=== PATIENT | female | born 1985 | race Caucasian/White ===

== ENCOUNTER 2019-09-23 11:14 | Emergency (ER) | payer OTHER ==
--- NOTE | 2019-09-23 11:37 | PDOC ---
History of Present Illness - General Chief Complaint: Pain, Acute Stated Complaint: ABD PAIN Time Seen by Provider: 09/23/19 11:17 - History of Present Illness Initial Comments: 09/23/19 12:29 34yo female with no pmhx presents with acute onset of upper abd pain today. Pt states she was eating a croissant while driving to work when the pain started after the croissant. States she did drink coffee as well. Pt states acute sharp stabbing pain to her upper abd assoc with multiple episodes of [employer]bnb vomiting at work. Pt states the pain did subside in the ambulance on the way to the hospital, but when in the exam room the pain acutely started again. Pt states she does not have diarrhea, denies dysuria. States pain radiates to her back. Pt denies prior hx of similar. No burning in chest or sour taste in mouth. No new foods last night, no new meds. Pmhx: denies Pshx: c section All: sulfa Past History - Past Medical History Allergies/Adverse Reactions: Allergies Allergy/AdvReac Type Severity Reaction Status Date / Time Sulfa (Sulfonamide Allergy Verified 09/23/19 11:16 Antibiotics) Home Medications: Ambulatory Orders Famotidine [Pepcid -] 20 mg PO DAILY #14 tablet 09/23/19 Review of Systems - Review of Systems Able to Perform ROS?: Yes Is the patient limited Setswana proficient: No Constitutional: No: Chills, Fever HEENTM: No: Nose Congestion, Throat Pain, Throat Swelling Respiratory: No: Cough, Shortness of Breath Cardiac (ROS): No: Chest Pain, Palpitations ABD/GI: Yes: Nausea, Vomiting, Abdominal cramping. No: Diarrhea : No: Burning, Dysuria Musculoskeletal: No: Back Pain Neurological: No: Headache, Numbness, Paresthesia, Ataxia All Other Systems: Reviewed and Negative *Physical Exam - Physical Exam General Appearance: Yes: Nourished, Appropriately Dressed, Moderate Distress, Other (tearful and crying) HEENT: positive: EOMI, Normal Voice, Pharynx Normal Neck: positive: Supple Respiratory/Chest: positive: Lungs Clear, Normal Breath Sounds. negative: Respiratory Distress Cardiovascular: positive: Regular Rhythm, Regular Rate, S1, S2. negative: Edema Gastrointestinal/Abdominal: positive: Normal Bowel Sounds, Soft, Tenderness (epigastric and RUQ ttp). negative: Guarding, Rebound Musculoskeletal: negative: Normal Inspection, CVA Tenderness Extremity: positive: Normal Capillary Refill, Normal Inspection, Normal Range of Motion Integumentary: positive: Normal Color, Dry, Warm Neurologic: positive: Fully Oriented, Alert, Normal Mood/Affect ED Treatment Course - LABORATORY CBC & Chemistry Diagram: 09/23/19 12:02 09/23/19 12:02 Medical Decision Making - Medical Decision Making 09/23/19 12:40 a/p: 34yo female with abd pain assoc with n/v today. Pt with upper abd pain. -concern for gastritis vs acute bonnie vs pancreatitis -will send labs, lipase, chem -ivf hydration, zofran, pepcid -tylenol for pain -will send for RUQ ultrasound -will monitor and reassess 09/23/19 12:52 no elevated wbc chem reviewed ua and ucg pending ultrasound pending 09/23/19 13:05 upreg neg ua neg 09/23/19 13:58 pt still with abd pain, no improvement still with nausea gb ultrasound with small stone or polyp, but no acute bonnie will send for ct imaging 09/23/19 13:59 lipase neg 09/23/19 15:54 dilated gb with a small stone, no pericholecystic fluid 09/23/19 16:34 ct without acute intraabd pathology other than dilated gb results of all imaging and labs discussed in full detail pt states she does feel better, no longer with pain, abd is soft, nt/nd +bs no longer nauseated will give maalox, will po challenge most likely will be stable for dc to home 09/23/19 16:48 pt has tolerated po stable for dc to home no longer with pain or vomiting pt states feeling much better discussed follow up - [place] [facility] [place] [facility] [place] - Discharge Information Problems reviewed: Yes Clinical Impression/Diagnosis: Biliary colic Condition: Stable Disposition: HOME - Admission No - Additional Discharge Information Prescriptions: Famotidine [Pepcid -] 20 mg PO DAILY #14 tablet - Follow up/Referral Referrals: DR. TORI [Other] Gastroenterology, [Other] - Patient Discharge Instructions Patient Printed Discharge Instructions: DI for Abdominal Pain-Adult, DI for Biliary Colic Additional Instructions: Please drink clear liquids for the next day. Please slowly advance your diet to the BRAT (bananas, rice, apple sauce, and toast). Please avoid fried fatty foods and tomato based products for a few days. 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 Please take all medications as prescribed. Please return to the ER with any further concerns or complaints. - Post Discharge Activity Work/Back to School Note: Back to Work
[2019-09-23 11:48] VITALS: BMI 23.9
[2019-09-23] MEDS ORDERED: SODIUM CHLORIDE 0.9% 1000 ML INFUS.BAG IV ONE (11:53)
[2019-09-23] MEDS ORDERED: ACETAMINOPHEN 1000 MG/100 ML VIAL (NON FORMULARY) IVPB ONE (11:53)
[2019-09-23] MEDS ORDERED: ONDANSETRON 4 MG/2 ML VIAL IVPUSH ONE (11:53)
[2019-09-23] MEDS ORDERED: FAMOTIDINE 20 MG/50 ML IVPB 20 MG/50 ML MG IVPB ONE ×2 (11:53→12:45)
[2019-09-23] MEDS ORDERED: ACETAMINOPHEN INJECTION 100 ML IVPB ONE (12:00)
[2019-09-23] MEDS ORDERED: ONDANSETRON 4 MG/2 ML VIAL ONE (12:00)
[2019-09-23 12:27] LABS: BASO % 0.5 % (0-2.0); EOS % 3.1 % (0-4.5); HEMOGLOBIN 14.1 GM/dl (10.7-15.3); LYMPH % 15.4 % (8-40); MCH 29.5 pg (25.7-33.7); MCHC 32.8 g/dl (32.0-36.0); MEAN CELL VOLUME 89.8 fl (80-96); MEAN PLT VOLUME 9.8 fl (7.5-11.1); MONO % 5.6 % (3.8-10.2); NEUT % 75.4 % (42.8-82.8); PLATELET COUNT 279 K/MM3 (134-434); RBC 4.79 M/mm3 (3.60-5.2); RDW 12.7 % (11.6-15.6); WHITE BLOOD COUNT 10.7 K/mm3 (4.0-10.8)
[2019-09-23 12:36] LABS: ALBUMIN 4.3 g/dl (3.4-5.0); BILIRUBIN,TOTAL 0.7 mg/dl (0.2-1); CREATININE 0.7 mg/dl (0.55-1.3); POTASSIUM 3.3 mmol/L (3.5-5.1); TOT PROT 7.9 g/dl (6.4-8.2)
[2019-09-23 12:50] LABS: HCG,QUALITATIVE URINE NEGATIVE
[2019-09-23 12:54] LABS: EPITHELIAL CELLS FEW /hpf
[2019-09-23] MEDS ORDERED: KCL 10 MEQ IVPB 10 MEQ/100 ML INFUS.BAG IVPB SCH (13:00)
[2019-09-23] MEDS ORDERED: METOCLOPRAMIDE HCL INJECTION 10 MG/2 ML VIAL IVPUSH ONE (13:30)
[2019-09-23] MEDS ORDERED: KETOROLAC TROMETHAMINE 15 MG/ML VIAL IVPUSH ONE (13:30)
[2019-09-23] MEDS ORDERED: METOCLOPRAMIDE HCL INJECTION 10 MG/2 ML VIAL ONE (13:41)
[2019-09-23] MEDS ORDERED: KETOROLAC TROMETHAMINE 15 MG/ML VIAL ONE (13:41)
[2019-09-23] MEDS ORDERED: morphine CARPU-JECT 2 MG/1 ML DISP.SYRIN IVPUSH ONE (14:12)
[2019-09-23] MEDS ORDERED: morphine SULFATE 4 MG/ML VIAL ONE (14:17)
[2019-09-23] MEDS ORDERED: KCL 10 MEQ IVPB 10 MEQ/100 ML INFUS.BAG IVPB ONE (15:18)
[2019-09-23] MEDS ORDERED: MAG HYDROX/AL HYDROX/SIMETH 30 ML UNIT-DOSE CUP PO ONE (16:26)
[2019-09-23] MEDS ORDERED: MAG HYDROX/AL HYDROX/SIMETH 30 ML UNIT-DOSE CUP ONE (16:38)
[2019-09-23 17:14] VITALS: BP 101/71; PULSE 67; TEMP 98.2
== END 2019-09-23 17:20 | disposition home or self-care (01) ==
LOC: FER 11:14
PROC: 3E033NZ Introduction of Analgesics, Hypnotics, Sedatives into Peripheral Vein, Percutaneous Approach (ICD-10-PCS; principal; 2019-09-23)
PROC: 3E033GC Introduction of Other Therapeutic Substance into Peripheral Vein, Percutaneous Approach (ICD-10-PCS; 2019-09-23)
PROC: 3E0333Z Introduction of Anti-inflammatory into Peripheral Vein, Percutaneous Approach (ICD-10-PCS; 2019-09-23)
PROC: 3E033NZ Introduction of Analgesics, Hypnotics, Sedatives into Peripheral Vein, Percutaneous Approach (ICD-10-PCS; 2019-09-23)
DX: K80.50 Calculus of bile duct without cholangitis or cholecystitis without obstruction (principal); Z88.2 Allergy status to sulfonamides
CPT/HCPCS: 36415; 74177-TC; 76705-TC; 80053; 81003; 81015; 82550; 83690; 84484; 84703; 85025; 99285-25; J0131; J7030; Q9967